=== PATIENT | female | born 1940 | race Caucasian/White ===

== ENCOUNTER 2017-02-01 12:20 | Emergency (ER) | payer MEDICARE, OTHER ==
[2017-02-01] MEDS ORDERED: ERYTHROMYCIN OPHTH OINT 1 GM TUBE RIGHTEYE STA (13:47)
[2017-02-01] MEDS ORDERED: CEPHALEXIN 250 MG CAPSULE PO STA (13:47)
--- NOTE | 2017-02-01 13:49 | ED Physician Documentation ---
PD HPI OPHTHO - Stated complaint Stated Complaint: R EYE SWOLLEN - Chief complaint Chief Complaint: Heent - History obtained from History obtained from: Patient - History of Present Illness Timing - onset: Other (Increasing pain and swelling of the right lower eyelid for the last couple of days without significant visual deficit. No injury. She does not have fevers. She does wear contacts.) Review of Systems Constitutional: denies: Fever, Chills Eyes: reports: Discharge, Irritation. denies: Photophobia Ears: denies: Loss of hearing, Ear pain, Drainage/discharge PD PAST MEDICAL HISTORY - Past Medical History Past Medical History: Yes HEENT: Glaucoma Other Past Medical History: Thiroid cancer, gout, - Past Surgical History Past Surgical History: Yes - Present Medications Home Medications: Ambulatory Orders Medication Instructions Recorded Confirmed Cephalexin [Keflex] 500 mg PO QID #40 capsule 02/01/17 Erythromycin Base [Erythromycin] 1 applic OP 5XD 7 Days 02/01/17 - Allergies Allergies/Adverse Reactions: Allergies Allergy/AdvReac Type Severity Reaction Status Date / Time No Known Drug Allergies Allergy Verified 02/01/17 12:30 - Social History Does the pt smoke?: No Smoking Status: Never smoker Does the pt drink ETOH?: Yes Does the pt have substance abuse?: No - Immunizations Immunizations are current?: Yes PD ED PE NORMAL - Vitals Vital signs reviewed: Yes - General General: Alert and oriented X 3, No acute distress - HEENT HEENT: PERRL, EOMI, Other (There is no fluorescein uptake on the right but she does have conjunctivitis with inferior periorbital cellulitis without extraocular movement deficit.) - Neck Neck: Supple, no meningeal sign, No bony TTP - Neuro Neuro: Alert and oriented X 3, Normal speech - Psych Psych: Normal mood, Normal affect Results - Vitals Vitals: Vital Signs - 24 hr 02/01/17 12:27 Temperature 36.6 C Heart Rate 55 L Respiratory 14 Rate Blood Pressure 164/80 H O2 Saturation 99 Oxygen O2 Source Room air PD MEDICAL DECISION MAKING - ED course ED course: The patient and family were counseled as to the diagnosis and need for follow- up. I counseled the patient with regard to signs and symptoms that would necessitate an urgent reevaluation in the emergency department. They understand they are welcome to return at any time if worse or if not improving as expected. This document was made in part using voice recognition software. While efforts are made to proofread this documents, sound alike and grammatical errors may occur. Departure - Departure Disposition: 01 Home, Self Care Clinical Impression: Periorbital cellulitis of right eye Condition: Good Record reviewed to determine appropriate education?: Yes Instructions: ED Cellulitis Facial Prescriptions: Erythromycin Base [Erythromycin] 1 applic OP 5XD 7 Days Cephalexin [Keflex] 500 mg PO QID #40 capsule Comments: Return in 3-4 days if not improved. Your blood pressure was elevated today on check into the emergency department. This does not mean that you have hypertension, it is a common phenomenon to come to the emergency department and have elevated blood pressure. I recommend that she see her primary care physician within the week to have it rechecked when you are feeling better.
[2017-02-01] MEDS ORDERED: CEPHALEXIN 250 MG CAPSULE PO ONE (13:55)
[2017-02-01] MEDS ORDERED: ERYTHROMYCIN OPHTH OINT 1 GM TUBE ONE (13:56)
[2017-02-01 14:08] VITALS: BP 189/81
== END 2017-02-01 14:07 | disposition home or self-care (01) ==
LOC: ED 12:20
DX: L03.213 Periorbital cellulitis (principal); R03.0 Elevated blood-pressure reading, without diagnosis of hypertension
CPT/HCPCS: 99283; A9270; J3490